=== PATIENT | female | born 1955 | race Caucasian/White ===

== ENCOUNTER 2016-10-02 02:41 | Observation (INO) | payer OTHER ==
--- NOTE | 2016-10-02 03:58 | ED CLINICAL REPORT ---
Clinical Report - Physicians/Mid Levels [facility] [address] [place] [place] [address] 10/02/2016 2:41 Patient: ISAAC SAMUEL Time Seen: 02:47; initial patient contact. Arrived- By ambulance. Historian- patient. HISTORY OF PRESENT ILLNESS Chief Complaint: VOMITING. This started just prior to arrival and is now gone (resolved upon arrival in the emergency department). It was abrupt in onset. The patient has had nausea, vomiting, black stools, abdominal pain and constipation. No diarrhea, bloody stools or flank pain. The illness is described as moderate. Similar symptoms previously: None. Recent medical care: Not recently seen/assessed. REVIEW OF SYSTEMS No fever. All systems otherwise negative, except as recorded above. PAST HISTORY Depression Hip Surgery. Skin cancer removal. SOCIAL HISTORY Former smoker. Heavy alcohol use; consumes one bottle of wine daily. No drug use. ADDITIONAL NOTES The nursing notes have been reviewed with agreement regarding the HPI, ROS, PMH and patient medications and allergies. PHYSICAL EXAM Appearance: Alert. Oriented X3. No acute distress. Eyes: Eyes normal inspection. No pale conjunctivae. ENT: Dry mucous membranes present. CVS: Normal heart rate and rhythm. Heart sounds normal. Respiratory: No respiratory distress. Breath sounds normal. Abdomen: Soft. Mild tenderness in the epigastric area. No guarding, rebound tenderness or Carranza's sign present. Bowel sounds normal. No organomegaly. No mass. Back: Normal inspection. No CVA tenderness. Rectal: Tenderness upon rectal exam. Strongly heme-positive stool; blood present in the stool; stools are dark colored; hemoccult assistant manager quality management check passed. (POC test reference range: negative). Dark stool. No digital exam tenderness. (Female H Eleanor present for exam). Skin: Skin warm and dry. Normal skin color. No rash. Extremities: No lower extremity edema. Neuro: Oriented X 3. LABS, X-RAYS, AND EKG Laboratory Tests: CBC w Diff: (ALEXUS: 10/02/2016 03:00) ( MsgRcvd 10/02/2016 03:32) Final results Test Result Flag Units (Reference) WHITE BLOOD COUNT 4.9 K/uL (4.5-11.5) RED BLOOD COUNT 3.26 L M/uL (4.00-5.20) HEMOGLOBIN 10.3 L gm/dL (12.0-16.0) HEMATOCRIT 29.8 L % (36.0-46.0) MEAN CELL VOLUME 91 fL (80-100) MEAN CORPUSCULAR HGB 31 pg (26-34) MEAN CORPUSCULAR HGB CONC 34 g/dL (31-37) RED CELL DISTRIBUTION WIDTH 12.9 % (11.6-14.8) PLATELET COUNT 230 K/uL (150-400) NEUTROPHIL % 70.9 % (50-75) LYMPH % 18.6 L % (25-40) MONO % 7.8 % (3-14) EOSINOPHIL % 2.0 % (0-4) BASOPHIL % 0.7 % (0-2) PT with INR: (ALEXUS: 10/02/2016 03:00) ( [facility] 10/02/2016 03:40) Final results Test Result Flag Units (Reference) INR 0.9 (0.8-1.2) Low Intensity Therapy: INR 1.5-2.0 PT range 18.5-23.1Mod.Intensity Therapy: INR 2.0-3.0 PT range 23.1-31.5High Intensity Therapy: INR 2.5-3.5 PT range 27.4-35.5High Intensity Therapy 2: INR 3.0-4.0 PT range 31.5-39.3 APTT 26 SECONDS (24-34) Amylase: (ALEXUS: 10/02/2016 03:00) ( MsgRcvd 10/02/2016 03:42) Final results Test Result Flag Units (Reference) GLUCOSE 108 mg/dL (70-110) BUN 45 H mg/dL (7-18) CREATININE 0.6 mg/dL (0.6-1.3) Estimated GFR >60 mL/min Estimated GFR- >60 mL/min Note: Persistent reduction over 3 months in eGFR<60 mL/min/1.73 m2 defines CKD. Patients with eGFR values>=60 mL/min/1.73 m2 may also have CKD if evidence ofpersistent proteinuria. Additional information may be foundat www.kidney.org. SODIUM 142 mmol/L (136-145) POTASSIUM 3.5 mmol/L (3.5-5.1) CHLORIDE 103 mmol/L (98-107) CARBON DIOXIDE 28 mmol/L (21-32) CALCIUM 8.8 mg/dL (8.5-10.1) TOTAL PROTEIN 6.4 g/dL (6.4-8.2) ALBUMIN 3.5 g/dL (3.3-5.0) BILIRUBIN, TOTAL 0.2 mg/dL (0.0-1.0) ALKALINE PHOSPHATASE 56 U/L (46-116) AST (SGOT) 24 U/L (15-37) ALT (SGPT) 26 U/L (12-78) LIPASE 149 U/L (73-393) AMYLASE 38 U/L (25-115) . PROGRESS AND PROCEDURES Discussed case with hospitalist, (call returned 03:58 Dr. Jones). Reviewed test results and need for additional work-up. Agreed upon treatment plan and decision to place in observation. Health care provider will see patient in ED. Disposition: Condition: stable. CLINICAL IMPRESSION Occult and minor GI bleed with hematemesis. Acute anemia associated with acute blood loss. INSTRUCTIONS Follow-up: Screening today revealed the patient's blood pressure to be in the pre-hypertensive range. The patient was admitted and blood pressure will be managed during the admission. (Electronically signed by Darius Cazares Dr. 10/02/2016 4:40)
--- NOTE | 2016-10-02 03:58 | ED NURSING NOTES ---
Clinical Report - Nurses [facility] [address] [place] [address] 10/02/2016 2:41 Patient: ISAAC SAMUEL TRIAGE Triage time 02:40 Oct 02 2016. Acuity: LEVEL 3. Chief Complaint: NAUSEA and VOMITING and BLACK STOOLS (Coffee ground emesis). 02:48 10/02/16. SEPSIS SCREEN: Sepsis Screen: negative. Negative (no infection suspected/documented). Heart rate greater than 90. --02:48 Christy Webster 02:42 10/02/16. BP: 163/83. HR: 111. RR: 20. O2 saturation: 100% on room air. Temp: 98.3 F (oral). Pain level now: 0/10. --02:48 Christy Webster. Weight: 68 kg stated. Height/Length: 67 inches Per Patient. BMI: 23.5. --02:46 Christy Webster. Medications PROzac Oral. --02:44 Christy Webster Multi Complete Oral. --02:45 Christy Webster. Allergies No Known Drug Allergy. --02:45 Christy Webster. History Arrived by EMS. Historian: patient. Accompanied by family. Primary physician (Ciaran). This started today. ( Patient reports that she began having vomiting tonight which looked like coffee grounds. She reports tarry stools over the last few days. She reports feeling faint after vomiting and taking a fall onto the carpet. She reports drinking some wine and having crab a few nights ago and vomiting.). She has had nausea and vomiting. Last oral intake by patient was (Yesterday evening). PAST MEDICAL HX: Immunizations: up-to-date. The patient is post-menopausal. SOCIAL HX: Former smoker, end date 2004. Alcohol use; consumes six wine daily. No drug use. No recent travel. No infectious disease exposure. No known contact with a sick individual. ABUSE ASSESSMENT: No report of abuse. FALL RISK ASSESSMENT: Fall risk assessment completed. No fall risk identified. NUTRITIONAL RISK ASSESSMENT: The nutritional risk assessment revealed no deficiencies. FUNCTIONAL ASSESSMENT: Functional assessment: no impairments noted. LEARNING NEEDS ASSESSMENT: The learning needs assessment revealed no barriers. SKIN INTEGRITY ASSESSMENT: Skin integrity risk assessment completed. No skin integrity risk identified. --02:48 Christy Webster. PROBLEMS: no known problems. ADDITIONAL SURGERIES: Hip Surgery. Skin cancer removal . --02:46 Christy Webster. Interventions ID band on patient. To treatment room. --02:48 Christy Webster. PHYSICAL ASSESSMENT 02:49 10/02/16. To room via stretcher. Patient gowned. GENERAL / NEURO / PSYCH: Alert. Oriented X 4. Appears in no acute distress. HEENT: Mucous membranes are pink. RESPIRATORY: Respirations not labored. CVS: Cardiac rhythm: sinus tachycardia; (110). GI / : Abdomen soft. SKIN: Skin is warm and dry. --02:49 Christy Webster. NURSING PROGRESS NOTES 02:49 10/02/16. Pulse oximeter and NIBP monitor placed on patient; monitor alarms on. Patient gowned. Reassurance given to the patient. Two patient identifiers checked. Call light placed in reach. Side rails up x 1. Bed placed in lowest position. Brakes of bed on. Patient ready for evaluation- chart flagged. --02:49 Christy Webster 03:04 10/02/2016 Site #1 started via IV in the right antecubital space with an 20g angiocath, with aseptic technique and good blood return; one attempt. Blood drawn: rainbow set. Labeled in the presence of the patient and sent to the lab. Saline lock flushed with 10 mL saline. --03:04 Christy Webster ( Provider at bedside discussing plan of care with patient). --03:05 Christy Webster 03:14 10/02/16. BP: 132/95. HR: 105. RR: 20. O2 saturation: 98% on room air. --03:15 Christy Webster 03:21 10/02/2016 Started bag #1 1000 mL IV Fluids IV NS (Saline); at 1000 mL/hr over 1 hour(s) via site #1. Allergies verified and confirmed 5 rights. IV patency established. IV site checked: no pain, redness, or swelling. IV flushed thoroughly pre- and post-medication administration. --03:31 Christy Webster 03:32 10/02/2016 PROTONIX 80MG (Pantoprazole Sodium) IVP 80 mg given over 4 minute(s) via site #1. Allergies verified and confirmed 5 rights. IV patency established. IV site checked: no pain, redness, or swelling. IV flushed thoroughly pre- and post-medication administration. IVP given by RN. --03:32 Christy Webster 03:59 10/02/2016 Zofran (Ondansetron HCl) IVP 4 mg given over 1 minute(s) via site #1. Allergies verified and confirmed 5 rights. IV patency established. IV site checked: no pain, redness, or swelling. IV flushed thoroughly pre- and post-medication administration. IVP given by RN. --03:59 Christy Webster 03:59 10/02/16. BP: 125/68. HR: 100. RR: 20. O2 saturation: 95% on room air. --04:01 Christy Webster 04:37 10/02/2016 IV Fluids IV NS Discontinued: bag #1. Total amount infused: 1000 mL. IV patency established. IV site checked: no pain, redness, or swelling. IV flushed thoroughly. --04:37 Christy Webster. DISPOSITION / DISCHARGE Report was given to a nurse via a phone call. Report included patient's care, treatment, medications, reviewed medication reconcilliation, and condition (including any recent changes or anticipated changes). All questions were answered. Report was acknowledged and care was transferred. (Rm CARBONE). Bed obtained. --04:33 Christy Webster Condition at departure: stable. --04:33 Christy Webster 04:33 10/02/16. BP: 133/70. HR: 94. RR: 20. O2 saturation: 93% on room air. Temp: 98.8 F (oral). Pain level now: 0/10. --04:33 Christy Webster Transported via stretcher by [facility]. Patient's personal items include: shirt, pants and two hearing aids; items were transported with the patient. --04:55 Christy Webster 04:56 10/02/2016 Site #[address] upon admission; patent, no pain and no signs of infection or infiltration. Converted to saline lock and flushed with 10 mL saline; flushes easily. --04:56 Christy Webster Departure time: 04:59 Oct 02 2016. --04:59 Christy Webster. Locked/Released at 10/02/2016 5:48 by Christy Webster,
--- NOTE | 2016-10-02 03:58 | ED CLINICAL REPORT ---
Clinical Report - Physicians/Mid Levels [facility] [address] [place] [address] 10/02/2016 2:41 Patient: ISAAC SAMUEL Time Seen: 02:47; initial patient contact. Arrived- By ambulance. Historian- patient. HISTORY OF PRESENT ILLNESS Chief Complaint: VOMITING. This started just prior to arrival and is now gone (resolved upon arrival in the emergency department). It was abrupt in onset. The patient has had nausea, vomiting, black stools, abdominal pain and constipation. No diarrhea, bloody stools or flank pain. The illness is described as moderate. Similar symptoms previously: None. Recent medical care: Not recently seen/assessed. REVIEW OF SYSTEMS No fever. All systems otherwise negative, except as recorded above. PAST HISTORY Depression Hip Surgery. Skin cancer removal. SOCIAL HISTORY Former smoker. Heavy alcohol use; consumes one bottle of wine daily. No drug use. ADDITIONAL NOTES The nursing notes have been reviewed with agreement regarding the HPI, ROS, PMH and patient medications and allergies. PHYSICAL EXAM Appearance: Alert. Oriented X3. No acute distress. Eyes: Eyes normal inspection. No pale conjunctivae. ENT: Dry mucous membranes present. CVS: Normal heart rate and rhythm. Heart sounds normal. Respiratory: No respiratory distress. Breath sounds normal. Abdomen: Soft. Mild tenderness in the epigastric area. No guarding, rebound tenderness or Carranza's sign present. Bowel sounds normal. No organomegaly. No mass. Back: Normal inspection. No CVA tenderness. Rectal: Tenderness upon rectal exam. Strongly heme-positive stool; blood present in the stool; stools are dark colored; hemoccult quality assurance/r&d lab technician check passed. (POC test reference range: negative). Dark stool. No digital exam tenderness. (Female H Eleanor present for exam). Skin: Skin warm and dry. Normal skin color. No rash. Extremities: No lower extremity edema. Neuro: Oriented X 3. LABS, X-RAYS, AND EKG Laboratory Tests: CBC w Diff: (ALEXUS: 10/02/2016 03:00) ( MsgRcvd 10/02/2016 03:32) Final results Test Result Flag Units (Reference) WHITE BLOOD COUNT 4.9 K/uL (4.5-11.5) RED BLOOD COUNT 3.26 L M/uL (4.00-5.20) HEMOGLOBIN 10.3 L gm/dL (12.0-16.0) HEMATOCRIT 29.8 L % (36.0-46.0) MEAN CELL VOLUME 91 fL (80-100) MEAN CORPUSCULAR HGB 31 pg (26-34) MEAN CORPUSCULAR HGB CONC 34 g/dL (31-37) RED CELL DISTRIBUTION WIDTH 12.9 % (11.6-14.8) PLATELET COUNT 230 K/uL (150-400) NEUTROPHIL % 70.9 % (50-75) LYMPH % 18.6 L % (25-40) MONO % 7.8 % (3-14) EOSINOPHIL % 2.0 % (0-4) BASOPHIL % 0.7 % (0-2) PT with INR: (ALEXUS: 10/02/2016 03:00) ( [facility] 10/02/2016 03:40) Final results Test Result Flag Units (Reference) INR 0.9 (0.8-1.2) Low Intensity Therapy: INR 1.5-2.0 PT range 18.5-23.1Mod.Intensity Therapy: INR 2.0-3.0 PT range 23.1-31.5High Intensity Therapy: INR 2.5-3.5 PT range 27.4-35.5High Intensity Therapy 2: INR 3.0-4.0 PT range 31.5-39.3 APTT 26 SECONDS (24-34) Amylase: (ALEXUS: 10/02/2016 03:00) ( MsgRcvd 10/02/2016 03:42) Final results Test Result Flag Units (Reference) GLUCOSE 108 mg/dL (70-110) BUN 45 H mg/dL (7-18) CREATININE 0.6 mg/dL (0.6-1.3) Estimated GFR >60 mL/min Estimated GFR- >60 mL/min Note: Persistent reduction over 3 months in eGFR<60 mL/min/1.73 m2 defines CKD. Patients with eGFR values>=60 mL/min/1.73 m2 may also have CKD if evidence ofpersistent proteinuria. Additional information may be foundat www.kidney.org. SODIUM 142 mmol/L (136-145) POTASSIUM 3.5 mmol/L (3.5-5.1) CHLORIDE 103 mmol/L (98-107) CARBON DIOXIDE 28 mmol/L (21-32) CALCIUM 8.8 mg/dL (8.5-10.1) TOTAL PROTEIN 6.4 g/dL (6.4-8.2) ALBUMIN 3.5 g/dL (3.3-5.0) BILIRUBIN, TOTAL 0.2 mg/dL (0.0-1.0) ALKALINE PHOSPHATASE 56 U/L (46-116) AST (SGOT) 24 U/L (15-37) ALT (SGPT) 26 U/L (12-78) LIPASE 149 U/L (73-393) AMYLASE 38 U/L (25-115) . PROGRESS AND PROCEDURES Discussed case with hospitalist, (call returned 03:58 Dr. Jones). Reviewed test results and need for additional work-up. Agreed upon treatment plan and decision to place in observation. Health care provider will see patient in ED. Disposition: Condition: stable. CLINICAL IMPRESSION Occult and minor GI bleed with hematemesis. Acute anemia associated with acute blood loss. INSTRUCTIONS Follow-up: Screening today revealed the patient's blood pressure to be in the pre-hypertensive range. The patient was admitted and blood pressure will be managed during the admission. (Electronically signed by Darius Cazares Dr. 10/02/2016 4:40)
--- NOTE | 2016-10-02 03:59 | ED ORDER SUMMARY ---
..... Patient: ISAAC SAMUEL OrderSheet [facility] VisitID: [id number] [place] [address] 61y, F Registration Date/Time: 10/02/2016 ORDER SHEET Weight: 68.0 kg (stated) Allergies: No Known Drug Allergy GENERAL ORDERS: CBC w Diff Urgent (03:08 10/02/2016 Rizwan Power) (Ack 3:14 SBaldwin) (3:59 HSoule) CMP Urgent (03:08 10/02/2016 Rizwan Power) (Ack 3:14 SBaldwin) (3:59 HSoule) PT with INR Urgent (03:08 10/02/2016 Rizwan Power) (Ack 3:14 SBaldwin) (3:59 HSoule) PTT Urgent (03:08 10/02/2016 Rizwan Power) (Ack 3:14 SBaldwin) (3:59 HSoule) Amylase Urgent (03:08 10/02/2016 Rizwan Power) (Ack 3:14 SBaldwin) (3:59 HSoule) Lipase Urgent (03:08 10/02/2016 Rizwan Power) (Ack 3:14 SBaldwin) (3:59 HSoule) UA-Culture if indicated Urgent (03:08 10/02/2016 Rizwan Power) (Ack 3:14 SBaldwin) Type & Screen Urgent (03:40 10/02/2016 Rizwan Power) (Ack 3:41 SBaldwin) (4:37 SBaldwin) MEDICATION ORDERS: IV FLUIDS: IV NS : initial bolus none -, then 1000 mL/hr for X1 (NOW) (03:08 10/02/2016 Rizwan Power) (Ack 3:14 HSoule) (3:31 HSoule) Protonix IVP 80mg 80 mg (Mix in NS 20ml over 4min) (03:24 10/02/2016 Rizwan Power) (3:32 HSoule) Zofran IV 4 mg (NOW) (03:56 10/02/2016 Rizwan Power) (3:59 HSoule) ORDER SHEET NOTES: [Electronically signed by Darius Cazares Dr. (04:40 10/02/2016)] [Electronically signed by Christy Webster (05:48 10/02/2016)] [Electronically locked/signed by Christy Webster (05:48 10/02/2016)]
--- NOTE | 2016-10-02 03:59 | ED ORDER SUMMARY ---
..... Patient: ISAAC SAMUEL OrderSheet [facility] VisitID: [id number] [place] [address] 61y, F Registration Date/Time: 10/02/2016 ORDER SHEET Weight: 68.0 kg (stated) Allergies: No Known Drug Allergy GENERAL ORDERS: CBC w Diff Urgent (03:08 10/02/2016 Rizwan Power) (Ack 3:14 SBaldwin) (3:59 HSoule) CMP Urgent (03:08 10/02/2016 Rizwan Power) (Ack 3:14 SBaldwin) (3:59 HSoule) PT with INR Urgent (03:08 10/02/2016 Rizwan Power) (Ack 3:14 SBaldwin) (3:59 HSoule) PTT Urgent (03:08 10/02/2016 Rizwan Power) (Ack 3:14 SBaldwin) (3:59 HSoule) Amylase Urgent (03:08 10/02/2016 Rizwan Power) (Ack 3:14 SBaldwin) (3:59 HSoule) Lipase Urgent (03:08 10/02/2016 Rizwan Power) (Ack 3:14 SBaldwin) (3:59 HSoule) UA-Culture if indicated Urgent (03:08 10/02/2016 Rizwan Power) (Ack 3:14 SBaldwin) Type & Screen Urgent (03:40 10/02/2016 Rizwan Power) (Ack 3:41 SBaldwin) (4:37 SBaldwin) MEDICATION ORDERS: IV FLUIDS: IV NS : initial bolus none -, then 1000 mL/hr for X1 (NOW) (03:08 10/02/2016 Rizwan Power) (Ack 3:14 HSoule) (3:31 HSoule) Protonix IVP 80mg 80 mg (Mix in NS 20ml over 4min) (03:24 10/02/2016 Rizwan Power) (3:32 HSoule) Zofran IV 4 mg (NOW) (03:56 10/02/2016 Rizwan Power) (3:59 HSoule) ORDER SHEET NOTES: [Electronically signed by Darius Cazares Dr. (04:40 10/02/2016)] [Electronically signed by Christy Webster (05:48 10/02/2016)] [Electronically locked/signed by Christy Webster (05:48 10/02/2016)]
--- NOTE | 2016-10-02 05:16 | Progress Note ---
Subjective General 61 y.o female who drinks 1 bottle wine per night and was taking celestina seltzer. Had vomiting black emesis and near syncope then went to ER for eval. A/P: GIB upper; monitor hct, ppi, consider eval with upper endoscopy NPO until stable.
[2016-10-02 05:28] VITALS: BP 131/86
--- NOTE | 2016-10-02 05:48 | ED MAR SUMMARY ---
..... Medication Administration Record [facility] [address] [address] Patient: ISAAC SAMUEL Visit ID: [id number] 61y, F Weight: 68.0 kg Height/Length: 67 in BMI: 23.5 ALLERGIES: No Known Drug Allergy Start 03:21 10/02/2016 Christy Webster,, Stop 04:37 10/02/2016 Christy Webster, Medication Administered: IV NS (SALINE), Dose: IV Fluids over 1 hour(s), Rate: 1000 mL/hr, Dispensed: 1000 mL bag, Site: #1 right AC. Medication Ordered: IV NS : initial bolus none -, then 1000 mL/hr for X1 (NOW). Given 03:32 10/02/2016 Christy Webster, Medication Administered: PROTONIX 80MG [IVP] (PANTOPRAZOLE SODIUM), Dose: 80 mg IVP over 4 minute(s), Site: #1 right AC. Medication Ordered: Protonix IVP 80mg 80 mg (Mix in NS 20ml over 4min). Given 03:59 10/02/2016 Christy Webster, Medication Administered: ZOFRAN [IVP] (ONDANSETRON HCL), Dose: 4 mg IVP over 1 minute(s), Site: #1 right AC. Medication Ordered: Zofran IV 4 mg (NOW).
--- NOTE | 2016-10-02 05:48 | ED DISCHARGE INSTRUCTIONS ---
Patient: ISAAC SAMUEL General Instructions [facility] VisitID: [id number] [address] [place] [address] 61y, F Registration Date/Time: 10/02/2016 Occult and minor GI bleed with hematemesis. Acute anemia associated with acute blood loss. INSTRUCTIONS Follow-up: Screening today revealed the patient's blood pressure to be in the pre-hypertensive range. The patient was admitted and blood pressure will be managed during the admission. (Electronically signed by Darius Cazares Dr. 10/02/2016 4:40)
--- NOTE | 2016-10-02 05:48 | ED DISCHARGE INSTRUCTIONS ---
Patient: ISAAC SAMUEL General Instructions [facility] VisitID: [id number] [address] [place] [address] 61y, F Registration Date/Time: 10/02/2016 Occult and minor GI bleed with hematemesis. Acute anemia associated with acute blood loss. INSTRUCTIONS Follow-up: Screening today revealed the patient's blood pressure to be in the pre-hypertensive range. The patient was admitted and blood pressure will be managed during the admission. (Electronically signed by Darius Cazares Dr. 10/02/2016 4:40)
--- NOTE | 2016-10-02 05:48 | ED MED RECONCILIATION SUMMARY ---
Patient: ISAAC SAMUEL Medication Reconciliation Report [facility] VisitID: [id number] [address] [place] [address] 61y, F Registration Date/Time: 10/02/2016 Weight: 68.0 kg Height/Length: 67 in. BMI: 23.5 ALLERGIES: No Known Drug Allergy The patient's Home Medications are listed below: THE FOLLOWING MEDICATIONS NEED TO BE RECONCILED: Multi Complete Oral PROzac Oral The source(s) of the original Home Medication information: Not obtained. The following Medications were given to the patient in the Emergency Department: IV NS IV Fluids bolus 0, then 1000 mL/hr, administered: 10/02/2016 3:21:00 AM PROTONIX 80MG [IVP] IVP 80 mg, administered: 10/02/2016 3:32:00 AM Zofran [IVP] IVP 4 mg, administered: 10/02/2016 3:59:00 AM The following Medications were prescribed to the patient: None.
--- NOTE | 2016-10-02 05:48 | ED MAR SUMMARY ---
..... Medication Administration Record [facility] [address] [place] [address] Patient: ISAAC SAMUEL Visit ID: [id number] 61y, F Weight: 68.0 kg Height/Length: 67 in BMI: 23.5 ALLERGIES: No Known Drug Allergy Start 03:21 10/02/2016 Christy Websetr,, Stop 04:37 10/02/2016 Christy Webster, Medication Administered: IV NS (SALINE), Dose: IV Fluids over 1 hour(s), Rate: 1000 mL/hr, Dispensed: 1000 mL bag, Site: #1 right AC. Medication Ordered: IV NS : initial bolus none -, then 1000 mL/hr for X1 (NOW). Given 03:32 10/02/2016 Christy Webster, Medication Administered: PROTONIX 80MG [IVP] (PANTOPRAZOLE SODIUM), Dose: 80 mg IVP over 4 minute(s), Site: #1 right AC. Medication Ordered: Protonix IVP 80mg 80 mg (Mix in NS 20ml over 4min). Given 03:59 10/02/2016 Christy Webster, Medication Administered: ZOFRAN [IVP] (ONDANSETRON HCL), Dose: 4 mg IVP over 1 minute(s), Site: #1 right AC. Medication Ordered: Zofran IV 4 mg (NOW).
--- NOTE | 2016-10-02 05:48 | ED MED RECONCILIATION SUMMARY ---
Patient: ISAAC SAMUEL Medication Reconciliation Report [facility] VisitID: [id number] [address] [place] [address] 61y, F Registration Date/Time: 10/02/2016 Weight: 68.0 kg Height/Length: 67 in. BMI: 23.5 ALLERGIES: No Known Drug Allergy The patient's Home Medications are listed below: THE FOLLOWING MEDICATIONS NEED TO BE RECONCILED: Multi Complete Oral PROzac Oral The source(s) of the original Home Medication information: Not obtained. The following Medications were given to the patient in the Emergency Department: IV NS IV Fluids bolus 0, then 1000 mL/hr, administered: 10/02/2016 3:21:00 AM PROTONIX 80MG [IVP] IVP 80 mg, administered: 10/02/2016 3:32:00 AM Zofran [IVP] IVP 4 mg, administered: 10/02/2016 3:59:00 AM The following Medications were prescribed to the patient: None.
--- NOTE | 2016-10-02 06:00 | NUR ---
ADMITTED WITH COMPLAINTS OF SYNCOPE, NAUSEA AND VOMITING, WELL BLACK STOOLS. PATIENT IS ALERT AND ORIENTATED AND IS ON THE ETOH PROTOCOL.
--- NOTE | 2016-10-02 06:25 | HISTORY AND PHYSICAL ---
ADMITTED: 10/02/2016 CHIEF COMPLAINT: 1. Black stools 2. Near-syncope 3. Black vomitus HISTORY OF PRESENT ILLNESS: The patient is a 61-year-old female who was at home. She had a couple days' worth of dark stools. She then had some crab last night and vomited up large amounts of black vomitus. She had also had a history of drinking a substantial amount of wine, 1 bottle per day for long-term, as well as taking multiple Maite- [place]eltzers for acid reflux, and so she presents with a likely new ulcer and with upper gastrointestinal bleed. She denies any chest pain. Denies shortness of breath. She does have the acid reflux. MEDICAL/SURGICAL HISTORY: Medical history: She has had hearing loss, anxiety and depression. She just started on fluoxetine. Surgical history: She has had hip replacement bilaterally and a basal cell carcinoma on her face. MEDICATIONS: 1. Vitamins. 2. Just started 20 mg of fluoxetine around 1 week ago. 3. She occasionally takes [id number] Maite-[place], including recently. ALLERGIES: 1. NONE. SOCIAL HISTORY: She is for 37 years. She drinks about a bottle of wine per night. She denies any tobacco, drugs or any other abnormal habits. FAMILY HISTORY: Mom is doing okay. Her dad at age 78 of probable CVA. REVIEW OF SYSTEMS: She has had the black stools, the acid reflux. No shortness of breath. She has the nausea, vomiting, and she has had of this near-syncope. PHYSICAL EXAMINATION: GENERAL: She is an alert female who appears to be in no distress. VITAL SIGNS: Blood pressure of 163/83, heart rate of 111, respirations 20, saturating 100% on room air, temperature is 98.3 degrees. She denies any pain. HEENT: Extraocular movements intact. Pupils equal, round, and reactive to light. Oropharynx is clear with moist mucous membranes. NECK: Supple, without lymphadenopathy. LUNGS: Clear to auscultation bilaterally. HEART: Regular rate and rhythm. No murmur. ABDOMEN: Soft, it is essentially nontender, maybe a little bit of left lower abdominal discomfort. GENITOURINARY/RECTAL: Grossly positive heme per ED evaluation and digital rectal exam. NEUROLOGIC: She is alert and oriented x3. Cranial nerves II through XII intact. Strength and sensation grossly intact. LAB/IMAGING: CBC: 4.9 white count, hematocrit 49.8 and platelets of 230. INR of 0.9. CMP: Glucose 108, BUN of 45, creatinine 0.6, sodium 142, potassium 3.5, chloride of 103, HCO3 of 28, calcium 8.8, total protein 6.4, albumin 3.5, bilirubin 0.2, alkaline phosphatase 56, AST of 24, ALT of 26, lipase 149, amylase 38. IMPRESSION: 1. This is a 61-year-old female who presents with near-syncope, positive guaiac stools and a history of coffee-ground emesis, consistent with upper gastrointestinal bleed secondary to alcohol and Maite-[place] use as well as possible anxiety PLAN: The patient to have serial hematocrits, started with a PPI, and will consider possible surgical intervention if her hematocrit does not stabilize. She has 2 large bore IVs that are placed at this time for possible need of transfusion.
[2016-10-02 06:54] VITALS: BP 108/64
[2016-10-02 10:56] VITALS: BP 144/83
--- NOTE | 2016-10-02 14:10 | NUR ---
PT. LEFT FOR OR JUST NOW, CONSENT SIGNED AND BOARDING PASS COMPLETED.
--- NOTE | 2016-10-02 14:29 | Progress Note ---
Subjective General Note Date: October 02, 2016 Admission Date: October 02, 2016 Hospital Day: 1 PCP: Brittany Garvin M.D. Status: Inpatient Advanced Directive: FULL CODE Room: 204-A Brief History: The patient is a 61-year-old white female with a significant past make a history of depression, anxiety, alcohol abuse/dependence, who presented to [facility] emergency department on the day of admission secondary to complaints of lightheadedness, coffee-ground emesis, and black stools. [facility] ER evaluation was consistent with upper GI bleed. Secondary to the above, the patient was admitted by Elmer Jones M.D. for further evaluation and treatment. For other history present illness, past medical history, family history, social history, review of systems, and admission physical examination please see the patient's history and physical examination and ER visit note in the patient's medical record. Subjective: The patient states she is doing well at this time. No further emesis. No nausea. No vomiting since admission. Patient requests: None Medications and Allergies Medications Current Medications Sig/Zee Start time Last Medication Dose Route Stop Time Status Admin Multivit/ 1 TAB DAILY 10/03 0900 AC Folic Acid/Iron PO Thiamine HCl 100 MG DAILY 10/03 0900 AC PO Pantoprazole Sodium 40 MG PPIBID 10/02 0600 AC 10/02 IV 0518 Acetaminophen 650 MG Q6H PRN 10/02 0500 AC 10/02 PO 0956 Dextrose/Sodium 1,000 ML ASDIRECTED 10/02 0500 AC 10/02 Chloride/Electrolyt IV 0518 Allergies Coded Allergies: Dairy (Anaphylaxis 10/02/16) Eggs or Egg-derived Products (Anaphylaxis 10/02/16) Uncoded Allergies: BEANS (10/02/16) Physical Exam Vital Signs / I&Os Vital Signs Date Time Temp Pulse Resp B/P Pulse O2 O2 Flow FiO2 Ox Delivery Rate 10/02 1056 98.8 95 20 144/83 100 Room Air 10/02 0810 Room Air 10/02 0654 98.6 96 19 108/64 98 10/02 0600 Room Air 10/02 0528 98.1 98 18 131/86 97 Room Air General Appearance Alert, Oriented X3, Cooperative, No acute distress Lungs Clear to auscultation, Normal air movement Cardiovascular Regular rate and rhythm, Normal S1 and S2 Abdomen Normal bowel sounds, Soft, No tenderness Extremities No cyanosis, No clubbing, No edema Neurological Grossly normal Psych/Mental Status Mental status normal, Mood normal LAB Results Laboratory Tests 10/02 10/02 10/02 10/02 10/02 1100 0900 0710 0550 0300 Chemistry Plasma Sodium (136 - 145 mmol/L) 142 Plasma Potassium (3.5 - 5.1 mmol/L) 3.5 Plasma Chloride (98 - 107 mmol/L) 103 CO2 (Enzymatic) (21 - 32 mmol/L) 28 BUN (7 - 18 mg/dL) 45 Creatinine (0.6 - 1.3 mg/dL) 0.6 Est GFR ( Amer) (mL/min) >60 Est GFR (Non-Af Amer) (mL/min) >60 Glucose (70 - 110 mg/dL) 108 Plasma Calcium (8.5 - 10.1 mg/dL) 8.8 Total Bilirubin (0.0 - 1.0 mg/dL) 0.2 AST (15 - 37 U/L) 24 ALT (12 - 78 U/L) 26 Alkaline Phosphatase (46 - 116 U/L) 56 Total Protein (6.4 - 8.2 g/dL) 6.4 Albumin (3.3 - 5.0 g/dL) 3.5 Amylase (25 - 115 U/L) 38 Lipase (73 - 393 U/L) 149 Coagulation INR (0.8 - 1.2) 0.9 APTT (24 - 34 SECONDS) 26 Hematology WBC (4.5 - 11.5 K/uL) 4.9 RBC (4.00 - 5.20 M/uL) 3.26 Hgb (12.0 - 16.0 gm/dL) 10.3 Hct (36.0 - 46.0 %) 26.6 25.7 26.8 27.0 29.8 MCV (80 - 100 fL) 91 MCH (26 - 34 pg) 31 RDW (11.6 - 14.8 %) 12.9 Neut % (Auto) (50 - 75 %) 70.9 Lymph % (Auto) (25 - 40 %) 18.6 [place] % (Auto) (3 - 14 %) 7.8 Eos % (Auto) (0 - 4 %) 2.0 Baso % (Auto) (0 - 2 %) 0.7 Plt Count, EDTA (150 - 400 K/uL) 230 PUBS MCHC (31 - 37 g/dL) 34 Assessment and Plan Problem List 1. Upper GI bleed Plan -Patient presents with findings of upper GI bleed -Protonix 40 mg IV twice a day -Serial hematocrit -Surgical consult Dr. Albarado for upper endoscopy -Monitor 2. Anemia Plan -Patient with findings of anemia -Labs of iron profile, B12, folate ordered -Monitor -H&H stable. No evidence of ongoing GI bleeding -Anemia most likely secondary to upper GI bleed 3. Alcohol dependence Status Chronic Onset Date Unknown Plan -Patient with history of alcohol dependence/abuse -Long-standing history with previous history of alcohol treatment -Monitor -Alcohol withdrawal protocol Current status: Fair, unstable Anticipated discharge date: Anticipated discharge this p.m. or in a.m. Anticipated discharge placement: Home Patient care time: Time spent in chart review, patient interview, physical exam, CPOE, and care documentation: 25 minutes Visit to patient today: 1 Complexity of care: Moderate E&M Codes Rounding: Inpt-Moderate/80916
--- NOTE | 2016-10-02 15:01 | NUR ---
PATIENT ARRIVED TO PACU AT 1452. SPONT RESP. VITALS STABLE. DENIES ANY DISCOMFORT AT THIS TIME. WILL CONTINUE TO MONITOR.
--- NOTE | 2016-10-02 15:43 | CONSULTATION REPORT ---
DATE OF CONSULTATION: 10/02/2016 CHIEF COMPLAINT: Hematemesis. HISTORY OF PRESENT ILLNESS: The patient is a 61-year-old woman who was admitted for vomiting coffee-ground material. She also had 2 days of dark stools leading into this. The patient became near syncopal. Since being in the hospital, she has not passed melena or red blood per rectum while on treatment. The patient has a previous history of regular consumption of wine and was using Maite-[place] to treat acid reflux. She has not had any previous history of GI bleed, peptic ulcer disease, esophageal varices. MEDICAL/SURGICAL HISTORY: Medical history of hearing loss, anxiety, depression. Past surgery: Bilateral total hip arthroplasty, and excision of skin cancer of the face. MEDICATIONS: Fluoxetine 20 mg every day starting 1 week ago, otherwise [id number] medications. ALLERGIES: 1. NONE TO MEDICATIONS. SOCIAL HISTORY: The patient is . She drinks about a bottle of wine a night. She does not use tobacco, or other drugs. FAMILY HISTORY: There is no history of gastrointestinal malignancy. Her mother is fine. Her father of a stroke at age 78. REVIEW OF SYSTEMS: A multipoint review of systems was obtained. The patient reports black stool, near-syncope, some acid reflux symptoms. She denies any cardiopulmonary symptoms, ENT symptoms, dysuria or urinary symptoms, acute joint problems, mental status problems or stroke-like symptoms, sinus problems, hemoptysis or bright red vomitus, but she has had coffee-ground vomitus. Additional review of systems is negative. PHYSICAL EXAMINATION: GENERAL: The patient is alert and cooperative. There is no odor of melena in the air. She appears completely relaxed and stable. Her mental status is normal. She is oriented to time and place. She moves all extremities symmetrically. Her facial nerve muscles are normal. HEENT: Her ears and nose demonstrate no gross external lesions. Eyes are equal. She is anicteric. NECK: Without palpable masses or thyromegaly. CHEST: Clear without wheeze or rales. HEART: Regular, without murmur or gallop. ABDOMEN: Reveals no evidence of local tenderness. There is no palpable hepatosplenomegaly. There is no ascites or caput medusae. IMPRESSION: 1. Upper gastrointestinal hemorrhage. PLAN: I recommend the patient undergo an EGD as requested. I talked to her and her about the nature of this procedure as well including risks such as perforation and bleeding. I talked to her about the potential differential diagnosis of ulcer disease and other upper gastrointestinal bleeding sources. I also talked about the possibility of interventional procedures for bleeding if necessary, though I think are very unlikely given the very stable and nonactive bleeding appearance of this patient. The patient would like to undergo the EGD as described to her.
[2016-10-02 15:44] VITALS: BP 134/61
--- NOTE | 2016-10-02 15:44 | OPERATIVE REPORT ---
DATE OF SURGERY: 10/02/2016 SURGEON: Judah Albarado MD PREOPERATIVE DIAGNOSIS: 1. Upper gastrointestinal hemorrhage. POSTOPERATIVE DIAGNOSES: 1. Gastric ulcers-prepyloric and antral 2. Duodenitis 3. Hiatal hernia PROCEDURE PERFORMED: 1. Esophagogastroduodenoscopy with biopsies ANESTHESIA: Total IV general. INDICATIONS: The patient is a 61-year-old woman presenting with a 2-day history of melena as well as coffee-ground emesis. SURGICAL TECHNIQUE: The patient was taken to the endoscopy suite, where total IV general was administered and the patient was placed in the left lateral decubitus position. A well-lubricated endoscope was inserted. The patient was found to have no signs of active bleeding and only one small spot of coffee-ground material in the upper stomach. The duodenum was entered. There were some red spots consistent with duodenitis, but no actual ulceration. On withdrawal, there were prepyloric shallow ulcers without any deep punched out ulcers as well some erythema in the antrum. These represented prepyloric antral or pyloric channel ulcers without active bleeding and with low likelihood of rebleed. A retroflexed view showed a small sliding hiatal hernia. On withdrawal, the gastroesophageal junction looked normal without signs of erosion or active bleeding. There were no varices or AV malformations seen. The patient left in good condition.
[2016-10-02] MEDS ORDERED: CARAFATE EQUIVAL1 GM PO (18:06)
[2016-10-02] MEDS ORDERED: PROTONIX40 MG PO (18:06)
--- NOTE | 2016-10-02 18:09 | Provider's Discharge Care Plan ---
Problem, Goal, Plan Problem List 1. Peptic ulcer disease Goals: Improve disease control, Prevent disease progress Instructions: Follow up as directed, Take meds as directed, Do not use any anti-inflammatory medications-aspirin, ibuprofen, naproxen 2. Alcohol dependence Goals: Improve disease control, Improve function, Improved health/wellness, Prevent disease progress Instructions: Follow up as directed, taper your alcohol consumption. Follow- up with your physician next week to discuss alcohol treatment programs
--- NOTE | 2016-10-02 18:11 | Discharge Summary ---
Discharge Summary Report Admit Date 10/02/16 Discharge Date 10/02/16 Admission Diagnosis 1. Upper GI bleed 2. Alcohol abuse/dependence Discharge Diagnosis 1. Upper GI bleed secondary to peptic ulcer disease 2. Alcohol abuse/dependence Brief History The patient is a 61-year-old white female with a significant past medical history of alcohol abuse/dependence who presented to [facility] emergency department on the day of admission secondary to complaints lightheadedness, emesis of coffee-ground material. ER evaluation was consistent with possible upper GI bleed/anemia. Secondary to the above, the patient was admitted Elmer Jones M.D. for further evaluation and treatment For other history of present illness, past medical history, family history, social history, review systems, and admission physical examination please see the admission history and physical exam and ER visit note in the patient's medical record. Hospital Course The following problems and their management were noted during the patient's hospitalization: 1. Upper GI bleed secondary to peptic ulcer disease The patient was admitted with findings of upper GI bleed. This was associated with mild anemia. Her H&H was stable at the time of discharge. She underwent treatment with Protonix 40 mg IV twice a day. Upper endoscopy was performed by Dr. Judah Albarado. Endoscopy showed findings of peptic ulcer with low probability of rebleeding. The patient was placed on a clear liquid diet which she tolerated well without problems. She was discharged home on Protonix 40 mg by mouth twice a day and Carafate 1 g by mouth before meals and at bedtime. She will follow-up with her PCP next week. Consider iron therapy/multivitamin. Follow-up CBC at her visit with her PCP. Hematocrit at the time of discharge was 26.6 and stable. Iron studies, B12, folate levels were within normal limits. CLOtest was negative. 2. Alcohol abuse/dependence The patient has a history of alcohol abuse/dependence. It was recommended she curtail her alcohol consumption. She will discuss alcohol treatment with her PCP next week. Discussions on tapering I'll call consumption were discussed with the patient and her . Lab/Imaging Laboratory Tests 10/02 10/02 10/02 10/02 10/02 1100 0900 0710 0550 0300 Chemistry Iron (35 - 150 ug/dL) 74 TIBC (260 - 445 ug/dL) 233 Iron Saturation (15 - 50 %) 32 Hematology Hct (36.0 - 46.0 %) 26.6 25.7 26.8 27.0 10/02 10/02 0300 0300 Chemistry Plasma Sodium (136 - 145 mmol/L) 142 Plasma Potassium (3.5 - 5.1 mmol/L) 3.5 Plasma Chloride (98 - 107 mmol/L) 103 CO2 (Enzymatic) (21 - 32 mmol/L) 28 BUN (7 - 18 mg/dL) 45 Creatinine (0.6 - 1.3 mg/dL) 0.6 Est GFR ( Amer) (mL/min) >60 Est GFR (Non-Af Amer) (mL/min) >60 Glucose (70 - 110 mg/dL) 108 Plasma Calcium (8.5 - 10.1 mg/dL) 8.8 Total Bilirubin (0.0 - 1.0 mg/dL) 0.2 AST (15 - 37 U/L) 24 ALT (12 - 78 U/L) 26 Alkaline Phosphatase (46 - 116 U/L) 56 Total Protein (6.4 - 8.2 g/dL) 6.4 Albumin (3.3 - 5.0 g/dL) 3.5 Amylase (25 - 115 U/L) 38 Lipase (73 - 393 U/L) 149 Vitamin B12 (211 - 946 pg/mL) 595. Folate (>3.0 ng/mL) 26.8 Coagulation INR (0.8 - 1.2) 0.9 APTT (24 - 34 SECONDS) 26 Hematology WBC (4.5 - 11.5 K/uL) 4.9 RBC (4.00 - 5.20 M/uL) 3.26 Hgb (12.0 - 16.0 gm/dL) 10.3 Hct (36.0 - 46.0 %) 29.8 MCV (80 - 100 fL) 91 MCH (26 - 34 pg) 31 RDW (11.6 - 14.8 %) 12.9 Neut % (Auto) (50 - 75 %) 70.9 Lymph % (Auto) (25 - 40 %) 18.6 [place] % (Auto) (3 - 14 %) 7.8 Eos % (Auto) (0 - 4 %) 2.0 Baso % (Auto) (0 - 2 %) 0.7 Plt Count, EDTA (150 - 400 K/uL) 230 PUBS MCHC (31 - 37 g/dL) 34 Microbiology Date/Time Procedure - Status Source Growth 10/02 1448 CLOtest - RECD GASTRIC Discharge Instructions/Meds For other recommendations regarding discharge diet, activity, followup, and discharge medications please see the patient's discharge instructions. Discharge condition: Fair, improved Greater than 30 min. was spent in the patient's discharge preparation including discharge interview and physical examination, progress note, discharge instructions, and discharge summary The patient was interviewed and examined on the day of discharge. E&M Codes Discharge: Inpt >30 min spent/10162
== END 2016-10-02 18:40 | disposition home or self-care (01) ==
LOC: ED SRH 02:41 → TRANS SRH 04:04 → ACUTE2 SRH 05:11
PROVIDERS: Surgery; ADMIT Family Medicine
PROC: 0DB68ZX Excision of Stomach, Via Natural or Artificial Opening Endoscopic, Diagnostic (ICD-10-PCS; principal; 2016-10-02 14:00)
DX: K25.4 Chronic or unspecified gastric ulcer with hemorrhage (principal); D62 Acute posthemorrhagic anemia; R55 Syncope and collapse; K29.80 Duodenitis without bleeding; K44.9 Diaphragmatic hernia without obstruction or gangrene; F10.20 Alcohol dependence, uncomplicated; F32.9 Major depressive disorder, single episode, unspecified; F41.9 Anxiety disorder, unspecified
CPT/HCPCS: 29229; 29230; 50004; 60001; 82943; 83526; 90001; 90074; 90100; 90155; 90705; 91004; 91504; 91505; 92235; 92530; 92668; 92670; 94001; 94060; 95059; 95070